=== PATIENT | female | born 1985 | race Hispanic/Latino ===

== ENCOUNTER 2021-09-26 08:09 | Outpatient (CLI) | payer BC ==
[2021-09-26 11:42] LABS: BHCG - Serum Negative (NEGATIVE); Pregs Control Background? CLEAR/WHITE (CLR/WHITE); Pregs Control Bar Appear? YES (CONTROL BAR)
[2021-09-26 20:33] LABS: SARS-CoV-2 PCR by NAA Not Detected (NotDetected)
== END 2021-09-26 08:10 | disposition home or self-care (01) ==
LOC: CSHLAB 08:09
PROVIDERS: ATTEND Otolaryngology Otolaryngic Allergy
DX: Z01.812 Encounter for preprocedural laboratory examination (principal); Z20.822 Contact with and (suspected) exposure to COVID-19; E04.9 Nontoxic goiter, unspecified
CPT/HCPCS: 84703; 85014; U0003; U0005

== ENCOUNTER 2021-10-01 08:12 | Observation (INO) | payer BC ==
[2021-09-28 09:41] VITALS: BMI 40.6
[2021-10-01] MEDS ORDERED: Fentanyl 250 MCG/5 ML VIAL ONE (11:35)
[2021-10-01] MEDS ORDERED: Ondansetron PF 4 MG/2 ML Vial ONE (11:35)
[2021-10-01] MEDS ORDERED: Dexamethasone 20 MG/5 ML VIAL ONE (11:35)
[2021-10-01] MEDS ORDERED: Lidocaine 2% PF 5 ML VIAL ONE (11:35)
[2021-10-01] MEDS ORDERED: Rocuronium Bromide 10 MG/ML (10ML VIAL) ONE (11:35)
[2021-10-01] MEDS ORDERED: Midazolam HCl 2 mg/2 ml Vial ONE ×2 (11:35→11:54)
[2021-10-01] MEDS ORDERED: PROPOFOL 20 ML ONE (11:35)
[2021-10-01] MEDS ORDERED: Ondansetron ODT 4 MG TAB PO PRN (11:47)
[2021-10-01] MEDS ORDERED: Ondansetron PF 4 MG/2 ML Vial IVP PRN (11:47)
[2021-10-01] MEDS ORDERED: Acetaminophen/Codeine 30-300mg Tablet PO PRN (11:51)
[2021-10-01] MEDS ORDERED: Scopolamine 1.5 mg/72 hour Patch ONE (11:54)
[2021-10-01] MEDS ORDERED: ceFAZolin 2 GM/Dextrose 50 ML IVPB ONE (11:55)
[2021-10-01] MEDS ORDERED: Lidocaine 1% w/Epinephrine 1:100K 20 ML VIAL ONE (12:09)
[2021-10-01] MEDS ORDERED: Meperidine HCl/PF 25 MG/ML VIAL ONE (13:22)
[2021-10-01] MEDS ORDERED: Fentanyl 100 MCG/2 ML VIAL ONE (14:09)
[2021-10-01] MEDS: Calcium Carbonate 500 MG ChewTAB PO SCH ×2 (15:18→22:21)
[2021-10-01] MEDS: Acetaminophen/Codeine 30-300mg Tablet PO PRN (16:22)
[2021-10-01] MEDS: Calcitriol 0.25 MCG CAP PO SCH (22:21)
[2021-10-02] MEDS: Calcium Carbonate 500 MG ChewTAB PO SCH (07:34)
[2021-10-02] MEDS: Acetaminophen/Codeine 30-300mg Tablet PO PRN (07:34)
[2021-10-02] MEDS: Calcitriol 0.25 MCG CAP PO SCH (07:35)
[2021-10-02 12:26] VITALS: BP 104/70; TEMP 98.4
== END 2021-10-02 12:54 | disposition home or self-care (01) ==
LOC: CSHSDC 08:12 → CSHTELE 11:43 → INTOOBSV 11:43
PROVIDERS: ADMIT Otolaryngology Otolaryngic Allergy; ATTEND Otolaryngology Otolaryngic Allergy
PROC: 0GTK0ZZ Resection of Thyroid Gland, Open Approach (ICD-10-PCS; principal; 2021-10-01)
PROC: 0GBJ0ZZ Excision of Thyroid Gland Isthmus, Open Approach (ICD-10-PCS; 2021-10-01)
DX: C73 Malignant neoplasm of thyroid gland (principal); E06.3 Autoimmune thyroiditis; E04.9 Nontoxic goiter, unspecified; E66.01 Morbid (severe) obesity due to excess calories; Z68.41 Body mass index [BMI] 40.0-44.9, adult
CPT/HCPCS: 36415; 82310; 83970; 88305; 88307; 88331; 94760; J0690; J1100; J2001; J2175; J2250; J2405; J2704; J3010

== ENCOUNTER 2022-03-08 10:17 | Inpatient (IN) | payer BC ==
[2022-03-08] MEDS ORDERED: Fentanyl 100 MCG/2 ML VIAL ONE ×3 (11:43→15:18)
[2022-03-08] MEDS ORDERED: PROPOFOL 20 ML ONE (11:43)
[2022-03-08] MEDS ORDERED: Lidocaine 1% PF 5 ML VIAL ONE (11:44)
[2022-03-08] MEDS ORDERED: Dexamethasone 20 MG/5 ML VIAL ONE (11:44)
[2022-03-08] MEDS ORDERED: Succinylcholine 200 MG/10 ml SYRINGE FS ONE (11:44)
[2022-03-08] MEDS ORDERED: Ondansetron PF 4 MG/2 ML Vial ONE (11:44)
[2022-03-08] MEDS ORDERED: Mupirocin 2% Ointment 22 GM Tube ONE (11:45)
[2022-03-08] MEDS ORDERED: HYDROmorphone 0.5 MG/0.5 ML SYRINGE ONE (11:47)
[2022-03-08] MEDS ORDERED: Midazolam HCl 2 mg/2 ml Vial ONE ×2 (11:51→12:10)
[2022-03-08] MEDS ORDERED: CEFAZOLIN 2 GM VIAL ONE (12:10)
[2022-03-08] MEDS ORDERED: Ondansetron PF 4 MG/2 ML Vial IVP PRN (12:12)
[2022-03-08] MEDS ORDERED: Ondansetron ODT 4 MG TAB PO PRN (12:12)
[2022-03-08] MEDS ORDERED: HYDROcodone/Acetaminophen 5/325 mg Tablet PO PRN ×2 (12:12)
[2022-03-08] MEDS ORDERED: PHENYLEPHRINE-NS 100 MCG/ML 10 ML SYRINGE ONE ×2 (12:46→14:45)
[2022-03-08] MEDS ORDERED: Lidocaine 1% (PF) 30 ML VIAL ONE (12:57)
[2022-03-08] MEDS ORDERED: Dexamethasone 4 mg/ml Vial ONE (15:18)
[2022-03-08] MEDS: Sodium Chloride 0.9% 1,000 ML IV SCH ×2 (17:30→21:23)
[2022-03-08] MEDS: Calcium Carbonate 500 MG ChewTAB PO SCH ×2 (17:48→20:10)
[2022-03-08] MEDS ORDERED: Morphine 2 MG/ML VIAL SLOW IVP PRN (19:13)
[2022-03-08] MEDS ORDERED: Ondansetron HCl/PF 8 MG in Sodium Chloride 0.9% 50 ML IVPB PRN (19:15)
[2022-03-08] MEDS: CEFAZOLIN 1 GM in Sodium Chloride 0.9% 100 ML IVPB SCH (20:07)
[2022-03-08] MEDS: Calcitriol 0.25 MCG CAP PO SCH (20:10)
[2022-03-09] MEDS: CEFAZOLIN 1 GM in Sodium Chloride 0.9% 100 ML IVPB SCH ×3 (03:09→20:38)
[2022-03-09] MEDS: Levothyroxine Sodium 100 MCG TAB PO SCH (05:05)
[2022-03-09] MEDS: Calcitriol 0.25 MCG CAP PO SCH ×2 (11:00→20:38)
[2022-03-09] MEDS: Calcium Carbonate 500 MG ChewTAB PO SCH ×3 (11:00→20:39)
[2022-03-09] MEDS: Sodium Chloride 0.9% 1,000 ML IV SCH ×2 (16:45→21:35)
[2022-03-10] MEDS: CEFAZOLIN 1 GM in Sodium Chloride 0.9% 100 ML IVPB SCH (04:48)
[2022-03-10] MEDS: Levothyroxine Sodium 100 MCG TAB PO SCH (05:10)
[2022-03-10 06:19] VITALS: BMI 41.5
[2022-03-10 08:24] VITALS: BP 114/59; TEMP 98
[2022-03-10] MEDS: Calcitriol 0.25 MCG CAP PO SCH (08:46)
[2022-03-10] MEDS: Calcium Carbonate 500 MG ChewTAB PO SCH (08:46)
== END 2022-03-10 12:00 | disposition home or self-care (01) | DRG 629 ==
LOC: CSHSDC 10:17 → CSHICU 17:34 → CSHIMCU 18:23 → CSHTELE 03-09 19:37
PROVIDERS: ADMIT Otolaryngology Otolaryngic Allergy; ATTEND Otolaryngology Otolaryngic Allergy
PROC: 07T20ZZ Resection of Left Neck Lymphatic, Open Approach (ICD-10-PCS; principal; 2022-03-08)
PROC: 07T10ZZ Resection of Right Neck Lymphatic, Open Approach (ICD-10-PCS; 2022-03-08)
PROC: 0CJS8ZZ Inspection of Larynx, Via Natural or Artificial Opening Endoscopic (ICD-10-PCS; 2022-03-08)
DX: C73 Malignant neoplasm of thyroid gland (principal); C77.0 Secondary and unspecified malignant neoplasm of lymph nodes of head, face and neck; Z68.41 Body mass index [BMI] 40.0-44.9, adult; R59.1 Generalized enlarged lymph nodes; Z20.822 Contact with and (suspected) exposure to COVID-19; E04.1 Nontoxic single thyroid nodule; E04.9 Nontoxic goiter, unspecified; K21.9 Gastro-esophageal reflux disease without esophagitis; E66.9 Obesity, unspecified; G43.909 Migraine, unspecified, not intractable, without status migrainosus; E89.0 Postprocedural hypothyroidism; F41.9 Anxiety disorder, unspecified; Z79.890 Hormone replacement therapy; Z79.899 Other long term (current) drug therapy
CPT/HCPCS: 36415; 82310; 83970; 87811; 88305; 88307; 94760; J0690; J1100; J1170; J2001; J2250; J2405; J2704; J3010; J3490; J7050